=== PATIENT | female | born 1925 | race Caucasian/White ===

== ENCOUNTER 2016-04-20 08:50 | Inpatient (IN) | payer MEDICARE, BC ==
--- NOTE | ~2016-04-20 | HP ---
History And Physical [place] [id number] [facility] [place]. [address] NAME: NAY CONNELL : [birth year] STATUS : ADM IN [facility]#: [id number] AGE: 89 ADM/REG DATE : 04/20/16 MR#: [id number] REPORT SERV DATE: 04/20/16 DICTATED BY: REMEDIOS ALICIA DATE: 04/20/16 REPORT STATUS : Draft TRANSCRIBED BY: BILLY DATE: 04/20/16 DATE OF ADMISSION: 04/20/2016 CHIEF COMPLAINT: Multiple. HISTORY OF PRESENT ILLNESS: The patient is a very pleasant 89-year-old white female. Her niece is at the bedside, who she lives with. The patient has no children of her own. Apparently last week, she had what was described as a gastrointestinal illness. She had nausea and vomiting. This subsequently resolved. Her last episode was on Wednesday. She was doing better, eating and drinking, and then on Wednesday, her niece noticed that she was kind of choking on liquids, not on solids, but on liquid, she had difficulty getting down liquids. She had no fever, no diarrhea, no abdominal pain. She has a slight cough, but it is not really new, and she seemed to be a little bit more confused over the weekend. She did have any difficulty moving any of her extremities, but she was somewhat weak. ALLERGIES: TRAMADOL. PAST MEDICAL HISTORY: 1. Chronic left bundle-branch block. 2. Chronic back pain. 3. Hypertension. 4. Hyperlipidemia. 5. Paroxysmal atrial fibrillation. 6. Dementia. 7. CKD with baseline creatinine around 1.5. 8. Ischemic cardiomyopathy, EF 35. 9. Frequent falls. 10.Hyperlipidemia. SOCIAL HISTORY: She is a nondrinker, nonsmoker. She lives with a niece. FAMILY HISTORY: Negative for any premature coronary artery disease. HOME MEDICATIONS: Reviewed and attached. REVIEW OF SYSTEMS: A full ten-point review of systems obtained. Pertinent positives mentioned in the HPI. PHYSICAL EXAMINATION: VITAL SIGNS: BP 163/66, temperature 97.9, pulse 198-100, respiratory rate 24, sats 100%. Temperature is 97.9. GENERAL: Well-developed elderly white female, pleasant. HEENT: Normocephalic, atraumatic. Throat is clear. NECK: Supple. HEART: Regular rate and rhythm. LUNGS: Grossly clear. History And Physical [place] [id number] [place]. [address] NAME: NAY CONNELL : [birth year] STATUS : ADM IN PAT#: [id number] AGE: 89 ADM/REG DATE : 04/20/16 MR#: [id number] REPORT SERV DATE: 04/20/16 DICTATED BY: REMEDIOS ALICIA DATE: 04/20/16 REPORT STATUS : Draft TRANSCRIBED BY: BILLY DATE: 04/20/16 ABDOMEN: Soft, nondistended, nontender. EXTREMITIES: Warm and dry. Pulses are 2+ at the feet. SKIN: Intact without rash or lesion. NEURO: She is alert. She is oriented to person and place, but not time. Mood and affect appear appropriate. She has symmetrical strength in all four extremities. Cranial nerves 2 through 12 are also intact. She does have a gag reflex. LABORATORY AND X-RAY: H and H are 12 and 38, white count 9.7, and platelets 249. Sodium 145, potassium 4.6, chloride 115. CO2 18. BUN and creatinine 42 and 2.7. Glucose 124. Lipase 168. LFTs are normal. Chest x-ray is stable and unchanged. Flu swab is negative. EKG shows a chronic left bundle. ASSESSMENT/PLAN: 1. Dysphagia to liquids. This is a new symptom, certainly must rule out transient ischemic attack or stroke, especially in the face of some increase in her confusion symptoms. We would recommend doing an MRI of her brain. We will do without contrast given that she has some acute on chronic kidney disease. We will also add a carotid duplex and echo. We will place her on a tele bed, continue aspirin, change her to Lipitor 80 mg a day, follow up her MRI and go from there. We will also have Speech Therapy see her in consultation to further evaluate her swallowing. We will keep her n.p.o. for now, provide IV fluids until we can assess that she can really swallow. 2. Acute kidney injury likely secondary to first and foremost urinary retention. She had about 800 mL of urine in her bladder when a Gu was placed. Also, she has had previous gastrointestinal illness resulting in nausea and vomiting. I suspect she has a component of dehydration and she has also developed some dysphagia and she is unable to take adequate p.o. liquids. I am going to hydrate her overnight and follow her with serial labs and continue her with the Gu catheter in place. Her urinalysis looks good. We will follow up on her urine culture and go from there. We will hold her angiotensin-receptor stella and her Lasix. 3. Dementia, acute on chronic, a bit worse today. We will continue her home medications and follow. She could have had a new stroke. 4. History of hypertension. I wrote for her blood pressure medicines. I do not believe she has had them today, although her niece states she thinks she has. 5. History of paroxysmal atrial fibrillation. She was in atrial fibrillation today. She was in sinus and as she has had a new stroke, we may need to revisit this and consider anticoagulation. 6. History of ischemic cardiopathy. We will be judicious with the use of fluids. 7. Hyperlipidemia, on statin therapy. 8. Deep venous thrombosis prophylaxis with subcutaneous heparin. 9. Disposition, pending above the aforementioned plan and workup. FALGUNI/BILLY History And Physical [address] [address] NAME: NAY CONNELL : [birth year] STATUS : ADM IN [facility]#: [id number] AGE: 89 ADM/REG DATE : 04/20/16 MR#: [id number] REPORT SERV DATE: 04/20/16 DICTATED BY: REMEDIOS ALICIA DATE: 04/20/16 REPORT STATUS : Draft TRANSCRIBED BY: BILLY DATE: 04/20/16 Remedios Alicia M.D. / [id number] CC: Mariel Otto M.D.
--- NOTE | ~2016-04-20 | CN ---
Consultation Report [facility] [address] [place]. [address] NAME: NAY CONNELL : [birth year] STATUS : ADM IN [facility]#: [id number] AGE: 89 ADM/REG DATE : 04/20/16 MR#: [id number] REPORT SERV DATE: 04/21/16 DICTATED BY: SAVANNAH BECK DATE: 04/21/16 REPORT STATUS : Draft TRANSCRIBED BY: MODL DATE: 04/21/16 NEPHROLOGY CONSULTATION DATE OF CONSULTATION: 04/21/2016 REASON FOR CONSULTATION: CKD with FANNY and acidosis. HISTORY OF PRESENT ILLNESS: Ms. Connell is an 89-year-old white female with chronic kidney disease, followed in the office of [facility] by Dr. Ceja. She was last seen there within the past month, but records are not available at the time of this dictation. It appears that she has a baseline creatinine between 1.3 and 1.5 according to old records. On 03/27, her creatinine was 1.5, at which time her calcium was 9.6. She was admitted overnight through the ER with a one-week history of GI illness. Apparently, she has had dysphagia for liquids for the last several days. She was brought in by family, where an MRI has shown atrophy without acute stroke. Carotid ultrasound showed no significant stenosis, and chest x-ray showed no active infiltrates. Her creatinine was 2.7 on presentation, at which time her calcium was 11.2 and bicarb was 18. She was placed on IV fluids and today, creatinine is down to 2.4, calcium 10.7, the bicarb is 15. She was recently placed on a bicarb drip. PAST MEDICAL HISTORY: 1. Chronic kidney disease, baseline creatinine 1.3 to 1.5. 2. Hypertension. 3. Dementia. 4. EF 40% with RVSP 42 mmHg and LVH on echo with normal bubble study this admission. 5. Hyperlipidemia. 6. Left bundle-branch block with paroxysmal atrial fibrillation. 7. Possible renal tubular acidosis per records. 8. Osteoporosis. MEDICATIONS: On admission, aspirin, Coreg, vitamin D 1000 units daily, Cardizem 120 mg daily, Colace, Lasix, hydrocodone, lisinopril 10 mg daily, melatonin, Namenda, multivitamin, Prilosec, MiraLax, potassium, pravastatin, sodium bicarb, and Carafate. FAMILY HISTORY: Noncontributory to present admission. SOCIAL HISTORY: She is a , lives in [place], and is retired. Her niece is her power of estate planning attorney. REVIEW OF SYSTEMS: Unobtainable in the patient's current condition. PHYSICAL EXAMINATION: VITAL SIGNS: Temperature 99.8, pulse 109, respirations 16, blood pressure 177/81, 92% sat Consultation Report [place] [id number] [facility] [place]. [address] NAME: NAY CONNELL : [birth year] STATUS : ADM IN PAT#: [id number] AGE: 89 ADM/REG DATE : 04/20/16 MR#: [id number] REPORT SERV DATE: 04/21/16 DICTATED BY: SAVANNAH BECK DATE: 04/21/16 REPORT STATUS : Draft TRANSCRIBED BY: BILLY DATE: 04/21/16 on room air. Intake and output are incomplete. GENERAL: She is an elderly, confused white female, who is checking on her medications with nausea and vomiting during my exam. HEENT: Sclerae without icterus. Conjunctivae not injected. Oropharynx is clear. Mucous membranes are dry. LUNGS: She has bilateral rhonchi, but no dyspnea or tachypnea on room air. CARDIAC: Heart rate tachycardic. Rhythm regular. 2/6 murmur. No rub. ABDOMEN: Soft, nontender, nondistended. EXTREMITIES: Without edema. SKIN: Without rash. : Deferred. Urine output is noted in the Gu catheter. NEURO: Deferred. MUSCULOSKELETAL: She has bilateral hand chronic osteoarthritis changes without active process. LABORATORY DATA: Sodium 146, potassium 3.5, bicarb 15, anion gap 14, GFR 17 mL/minute, BUN 37, creatinine 2.4, calcium 10.7, albumin 3.5. Liver function tests normal. White count 10,800; hemoglobin 11.1; platelets 201,000. Influenza was negative. Urinalysis showed no blood or protein. Immunofixation electrophoresis was normal in 06/2014. ASSESSMENT AND PLAN: Ms. Connell has chronic kidney disease, baseline creatinine 1.3 to 1.5 and now with acute kidney injury, anion gap metabolic acidosis, hypercalcemia, dementia, and dysphagia. Other history is as listed above. I suspect at this point she may have some intravascular volume depletion with her recent GI symptoms. Her Lasix and ADY inhibitor have appropriately been placed on hold. We will stop her vitamin D. The reason for her worsened hypercalcemia is unclear at this time, but may be related to vitamin D supplement versus dehydration versus immobility? We will check a PTH and continue hydration plus bicarb replacement. Hopefully, renal function will recover to baseline. She is not a chronic dialysis candidate with her multiple comorbid illnesses. Family updated in room and agree with treatment plan. We will follow closely with you and appreciate consult. CONCHA/BILLY Savannah Beck M.D. / [id number] CC: Consultation Report [address] [address] NAME: NAY CONNELL : [birth year] STATUS : ADM IN PAT#: [id number] AGE: 89 ADM/REG DATE : 04/20/16 MR#: [id number] REPORT SERV DATE: 04/21/16 DICTATED BY: SAVANNAH BECK DATE: 04/21/16 REPORT STATUS : Draft TRANSCRIBED BY: BILLY DATE: 04/21/16 Lyn Mckeon M.D. Mariel Otto M.D. Douglas Ceja M.D.
--- NOTE | ~2016-04-20 | CN ---
Consultation Report [facility] [address] [place]. [address] NAME: NAY CONNELL : [birth year] STATUS : ADM IN PAT#: [id number] AGE: 89 ADM/REG DATE : 04/20/16 MR#: [id number] REPORT SERV DATE: 04/23/16 DICTATED BY: MORENO ROWE DATE: 04/23/16 REPORT STATUS : Draft TRANSCRIBED BY: MODL DATE: 04/23/16 GI CONSULTATION DATE OF CONSULTATION: 04/23/2016 REASON FOR CONSULTATION: Evaluation and management of dysphagia. HISTORY OF PRESENT ILLNESS: Ms. Connell is an 89-year-old female patient, who has been seen by Dr. Ray Alston in the past, who presented on 04/20 with multiple list of complaints. It should be noted that the history of present illness has been gathered from the chart as she is unable to supply me with really any adequate history. She apparently lives with her niece, who is not present at this time, but when she came in, she had had what was described as a GI virus with nausea and vomiting that resolved. She has been having issues with choking on liquids. She states that solids get stuck, she has to regurgitate them back up. She has had a cough at home. She has dementia, but per records had been more confused at home and had some difficulty in ambulating with more progressive weakness, thus she was brought in and found to have acute kidney injury secondary to her nausea and vomiting. Her main complaints now are dysphagia and choking on all consistencies. She had a modified barium swallow study as well as a bedside swallow study with only recommendations of aspiration precautions, regular diet, regular meats, thin liquids, no treatment. The patient did have noted dry heaving and gagging three-fourths of the study, no visualized reason for this to happen, thus prompting GI consultation. She has had an upper endoscopy in the past with Dr. Alston, this was done in 12/2013 secondary to dyspepsia, gas, and bloating. Findings on that exam showed a normal duodenum, normal stomach, hiatal hernia, and a tortuous esophagus. I have discussed with the patient we will plan on EGD in the morning. Risks, benefits, alternatives, and complications were detailed for her to include, but not limited to risk of bleeding, perforation, infection, reaction to medications, as well as cardiac pulmonary side effects. PAST MEDICAL HISTORY: Chronic left bundle-branch block, chronic back pain, hypertension, paroxysmal atrial fibrillation, dementia, chronic kidney disease, ischemic cardiomyopathy with last ejection fraction 35%, falls, dementia, hyperlipidemia, gastritis, a tortuous esophagus. SOCIAL HISTORY: No alcohol, tobacco, or illicits. She lives independently with her niece. FAMILY HISTORY: Noncontributory from a GI standpoint. ALLERGIES: TO TRAMADOL. HOME MEDICATIONS: Aspirin, Coreg, vitamin D, Cardizem, Colace, Lasix, Neon, Proventil, melatonin, Namenda, multivitamin, Prilosec, MiraLax, potassium, Pravachol, sodium bicarbonate, Carafate. Consultation Report [address] [place]. [address] NAME: NAY CONNELL : [birth year] STATUS : ADM IN [facility]#: [id number] AGE: 89 ADM/REG DATE : 04/20/16 MR#: [id number] REPORT SERV DATE: 04/23/16 DICTATED BY: MORENO ROWE DATE: 04/23/16 REPORT STATUS : Draft TRANSCRIBED BY: BILLY DATE: 04/23/16 REVIEW OF SYSTEMS: Somewhat limited due to the patient's mental status. PERTINENT LABORATORY DATA: Sodium 141, potassium is 2.9, BUN is 2.7, creatinine 2.18. White count 11.2, hemoglobin is 11.2 with a hematocrit of 34.0, platelet count 203. INR of 1.2. PHYSICAL EXAMINATION: VITAL SIGNS: Temperature 98.0, pulse 80, respirations 18, and blood pressure 143/72. NEURO: Reveals an alert female, resting in bed. She is oriented to self, and she knows she is in the hospital. GENERAL: She is cooperative. She is in no obvious apparent distress. It is hard for her to give me any specifics on why she is in the hospital. HEAD, EARS, EYES, NOSE, AND THROAT: Anicteric. Pupils equal, round, reactive to light and accommodation. Normocephalic and atraumatic. NECK: No JVD. No palpable nodes. Supple. LUNGS: Coarse with normal respiratory effort exhibited. CARDIOVASCULAR SYSTEM: Regular rate and rhythm. ABDOMEN: Soft, nondistended, nontender with active bowel sounds. EXTREMITIES: No edema. Normal distal pulses. SKIN: Warm, dry, and intact. ASSESSMENT: 1. Dysphagia, unclear etiology. 2. Dementia. 3. Acute kidney injury on presentation. 4. Nausea and vomiting, which has resolved. 5. Hypokalemia. PLAN: EGD with dilation in the morning, we will check for Flory esophagitis on the exam. We will hold her aspirin. Other recommendations to follow endoscopy. FREDDY/BILLY Moreno LYNDA Montoya / [id number] CC: Laurita Benson M.D.
--- NOTE | ~2016-04-20 | EGD ---
EGD REPORT [facility] [address] [address] NAME: MAYRA CONNELL : [birth year] STATUS : ADM IN PAT#: [id number] AGE: 89 ADM/REG DATE : 04/20/16 MR#: [id number] REPORT SERV DATE: 04/24/16 DICTATED BY: TIMOTHY LANIER DATE: 04/24/16 REPORT STATUS : Draft TRANSCRIBED [facility]: [facility] DATE: 04/24/16 Endoscopy Center Patient Name: Mayra Connell Date of : 1925 Attending MD: TIMOTHY LANIER MD Procedure Date No Time: 04/24/2016 Procedure: Upper GI endoscopy Indications: Dysphagia Referring MD: CHANTELLE MAHONEY MD Medicines: Monitored Anesthesia Care Complications: No immediate complications. Estimated blood loss: Minimal. Procedure: Pre-Anesthesia Assessment: - ASA Grade Assessment: III - A patient with severe systemic disease. After obtaining informed consent, the endoscope was passed under direct vision. Throughout the procedure, the patient's blood pressure, pulse, and oxygen saturations were monitored continuously. The GIF [id number] was introduced through the mouth, and advanced to the second part of duodenum. The upper GI endoscopy was accomplished without difficulty. The patient tolerated the procedure well. Findings: No endoscopic abnormality was evident in the esophagus to explain the patient's complaint of dysphagia. Biopsies were taken with a cold forceps for histology. Estimated blood loss was minimal. A medium-sized hiatus hernia was present. The examined duodenum was normal. The exam was otherwise without abnormality. Impression: - No endoscopic esophageal abnormality to explain patient's dysphagia. Biopsied. - Hiatus hernia. - The examination was otherwise normal. Recommendation: - Return patient to hospital [facility] for ongoing care. - Use Protonix (pantoprazole) 40 mg PO BID for 6 weeks. - Await pathology results. - Mechanical soft diet. - Return to GI clinic in 4 weeks. Procedure Code(s): --- Professional --- 81711, Esophagogastroduodenoscopy, flexible, transoral; EGD REPORT [facility] [address] [place] [address]. [address] NAME: MAYRA CONNELL : [birth year] STATUS : ADM IN [facility]#: [id number] AGE: 89 ADM/REG DATE : 04/20/16 MR#: [id number] REPORT SERV DATE: 04/24/16 DICTATED BY: TIMOTHY LANIER DATE: 04/24/16 REPORT STATUS : Draft TRANSCRIBED BY: [facility] DATE: 04/24/16 with biopsy, single or multiple Diagnosis Code(s): --- Professional --- R13.10, Dysphagia, unspecified K44.9, Diaphragmatic hernia without obstruction or gangrene CPT copyright 2013 [employer]. All rights reserved. The codes documented in this report are preliminary and upon neuroscience director na review may be revised to meet current compliance requirements. Timothy Lanier MD TIMOTHY LANIER MD 04/24/2016 10:08 AM This report has been signed electronically. Number of Addenda: 0 Note Initiated On: 04/24/2016 9:27 AM Scope Withdrawal Time 0 hours 0 minutes 0 seconds [address] [place], [place] [address]X
--- NOTE | ~2016-04-20 | DS ---
Discharge Summary [facility] [address] [place]. [address] NAME: MAYRA CONNELL : [birth year] STATUS : DIS IN PAT#: [id number] AGE: 89 ADM/REG DATE : 04/20/16 MR#: [id number] REPORT SERV DATE: 04/24/16 DICTATED BY: OTILIA GARVIN DATE: 04/24/16 REPORT STATUS : Draft TRANSCRIBED BY: MODL DATE: 04/24/16 ADMISSION DATE: 04/20/2016 DISCHARGE DATE: 04/24/2016 CONDITION ON DISCHARGE: Stable. DISPOSITION: Discharged to home with home health nurse under the care of her niece. DIAGNOSES ON DISCHARGE: 1. Acute kidney injury on chronic kidney disease - resolving. 2. Dysphagia of unclear origin right now. The patient has had EGD that is showing almost normal esophagus and stomach except for mild esophagitis for which the patient is being placed on a proton pump inhibitor. 3. Stroke has been ruled out for the dysphagia. Other conditions that are chronic and remain stable include: 1. Chronic kidney disease, stage IV which is stable and the patient is being followed by Dr. Ceja as outpatient. 2. Moderate dementia, which is chronic and for which the patient is on medications at this time. 3. Hypertension, which is stable. 4. Paroxysmal atrial fibrillation - the patient is in sinus rhythm as of now, but again, anticoagulation is not an option in this patient given the history of other comorbidities and also given the history of risk for fall. 5. History of ischemic cardiomyopathy, which is stable. 6. Hyperlipidemia - the patient is already on statin therapy. BRIEF HOSPITAL COURSE: Ms Mayra Connell is an 89-year-old white female patient who lives at home and is being cared for by her niece who was brought in because of dysphagia. The patient was admitted with rule out stroke and workup per stroke protocol was initiated. The patient had a CT scan of the brain and an MRI that did not show any evidence of any acute stroke at this time. As the patient did complain of ongoing dysphagia, the patient had to undergo an EGD. Consults obtained during this hospitalization include a GI consult for the dysphagia and upper endoscopy and also Nephrology consult for acute kidney injury. The patient was also started on fluids and her FANNY has been resolving, and her creatinine is almost back to baseline. Her baseline creatinine is around 1.5 to 1.6, followed by Dr. Ceja, and on the day of discharge, her creatinine is 2.0. This is not at baseline yet, but has shown significant improvement and has decreased from almost 2.7 to 2.0 today. The patient underwent an EGD on 04/24/2016 that showed normal esophagus except for mild esophagitis, normal stomach and duodenum. Hence, the reason for the dysphagia itself is unclear right now other than could be psychogenic/related to her dementia itself. However, the niece has been updated with all the above tests results and the patient is being sent home with home health nurse, and also the niece has been advised to give the patient soft Discharge Summary [address] [place] [facility] [place] [address] NAME: MAYRA CONNELL : [birth year] STATUS : DIS IN PAT#: [id number] AGE: 89 ADM/REG DATE : 04/20/16 MR#: [id number] REPORT SERV DATE: 04/24/16 DICTATED BY: OTILIA GARVIN DATE: 04/24/16 REPORT STATUS : Draft TRANSCRIBED BY: BILLY DATE: 04/24/16 mechanical diet and take aspiration precautions. The patient is being sent home with only one medication that is new, omeprazole 40 mg p.o. b.i.d., given 30 minutes before food, I have given a prescription for #60. All other medications will remain the same and these include pravastatin 40 mg once a day, carvedilol 25 mg p.o. b.i.d., Cardizem CD 120 mg once a day, Colace, melatonin, Namenda 5 mg once a day, multivitamins, sodium bicarbonate 650 mg p.o. q.h.s., sucralfate 1 g p.o. b.i.d., aspirin 81 mg once a day, Lasix 20 mg once a day, [place] 5/325 one p.o. b.i.d. p.r.n., polyethylene glycol kit p.r.n., potassium chloride 10 mEq p.o. daily, and vitamin D 1000 units once day. At this time, we will hold lisinopril 10 mg that she takes given the history of acute kidney injury that the patient had during this admission. However, when the patient sees Dr. Ceja back in the next four to five weeks, lisinopril could be restarted upon the chain link fence installer's discretion. At this time, I have the following labs on the patient. Most recent labs on Mayra Connell include the following: Her CBC on 04/24/2016 shows WBC count of 12.1, hemoglobin 11.9, hematocrit of 35.9, and platelet count of 192. INR is 1.2. Renal function profile shows sodium 141, potassium 3.1 which is being corrected, BUN is 23, and creatinine is 2.06. Her troponin I was slightly elevated at 0.09, but the patient is asymptomatic at this time and does not have any chest pain per se. The patient had a swallowing study too that shows that she does have vallecular pooling prior to swallow, but no evidence of aspiration or penetration during the exam. The patient also had a PTH that came back normal. The patient also had a hemoglobin A1c that came back normal at 5.0. Urinalysis that came back completely normal. The patient also had a bilateral carotid ultrasound that showed atherosclerotic disease, but no evidence of significant luminal stenosis. There is less than 50% luminal stenosis in the right proximal ICA. Also as mentioned above, the patient had an MRI of the brain and that showed no evidence of any acute infarction, but did show generalized atrophy and microangiopathic leukoencephalopathy. Hence, the patient is being sent home in stable condition with home health nurse and with medications as mentioned above. I have spent about 40 minutes in coordinating discharge care of this patient including face- to-face encounter and summarizing this discharge. RRA/MODL Otilia Garvin M.D. Discharge Summary [address] [address] NAME: MAYRA CONNELL : [birth year] STATUS : DIS IN PAT#: [id number] AGE: 89 ADM/REG DATE : 04/20/16 MR#: [id number] REPORT SERV DATE: 04/24/16 DICTATED BY: OTILIA GARVIN DATE: 04/24/16 REPORT STATUS : Draft TRANSCRIBED BY: BILLY DATE: 04/24/16 / [id number] CC: Laurita Benson M.D.
--- NOTE | ~2016-04-20 | EGD ---
EGD REPORT [facility] [address] [place] [address] NAME: MAYRA CONNELL : [birth year] STATUS : ADM IN PAT#: [id number] AGE: 89 ADM/REG DATE : 04/20/16 MR#: [id number] REPORT SERV DATE: 04/24/16 DICTATED BY: TIMOTHY LANIER DATE: 04/24/16 REPORT STATUS : Draft TRANSCRIBED BY: [facility] DATE: 04/24/16 Endoscopy Center Patient Name: Mayra Connell Date of : 1925 Attending MD: TIMOTHY LANIER MD Procedure Date No Time: 04/24/2016 Procedure: Upper GI endoscopy Indications: Dysphagia Referring MD: CHANTELLE MAHONEY MD Medicines: Monitored Anesthesia Care Complications: No immediate complications. Estimated blood loss: Minimal. Procedure: Pre-Anesthesia Assessment: - ASA Grade Assessment: III - A patient with severe systemic disease. After obtaining informed consent, the endoscope was passed under direct vision. Throughout the procedure, the patient's blood pressure, pulse, and oxygen saturations were monitored continuously. The GIF [id number] was introduced through the mouth, and advanced to the second part of duodenum. The upper GI endoscopy was accomplished without difficulty. The patient tolerated the procedure well. Findings: No endoscopic abnormality was evident in the esophagus to explain the patient's complaint of dysphagia. Biopsies were taken with a cold forceps for histology. Estimated blood loss was minimal. A medium-sized hiatus hernia was present. The examined duodenum was normal. The exam was otherwise without abnormality. Impression: - No endoscopic esophageal abnormality to explain patient's dysphagia. Biopsied. - Hiatus hernia. - The examination was otherwise normal. Recommendation: - Return patient to hospital [facility] for ongoing care. - Use Protonix (pantoprazole) 40 mg PO BID for 6 weeks. - Await pathology results. - Mechanical soft diet. - Return to GI clinic in 4 weeks. Procedure Code(s): --- Professional --- 63727, Esophagogastroduodenoscopy, flexible, transoral; EGD REPORT [facility] [address] [place] [address]. [address] NAME: MAYRA CONNELL : [birth year] STATUS : ADM IN [facility]#: [id number] AGE: 89 ADM/REG DATE : 04/20/16 MR#: [id number] REPORT SERV DATE: 04/24/16 DICTATED BY: TIMOTHY LANIER DATE: 04/24/16 REPORT STATUS : Draft TRANSCRIBED BY: [facility] DATE: 04/24/16 with biopsy, single or multiple Diagnosis Code(s): --- Professional --- R13.10, Dysphagia, unspecified K44.9, Diaphragmatic hernia without obstruction or gangrene CPT copyright 2013 [employer]. All rights reserved. The codes documented in this report are preliminary and upon hyperion developer review may be revised to meet current compliance requirements. Timothy Lanier MD TIMOTHY LANIER MD 04/24/2016 10:08 AM This report has been signed electronically. Number of Addenda: 0 Note Initiated On: 04/24/2016 9:27 AM Scope Withdrawal Time 0 hours 0 minutes 0 seconds [address] [place], [place] [address]J
[~2016-04-20 08:50] MED LIST: ACET500CAP PO; ALTA2.5 PO; ALTA5 PO; ASAB PO; CALCIUM,MAG,ZINC PO; CARDCD120 PO; CEFT2 PO; CLARIT10 PO; COREG12 PO; COREG25 PO; COREG3 PO; COREG6 PO; D 5000 PO; DIGITEK0.125 MG PO; DSS PO; EYE CAPS PO; FISH OIL300 MG PO; FISH-EPA1000 MG PO; FORTICAL200 MG/ACT NAS; FOSAMAX + D1 TAB PO; FOSAMAX70 MG PO; GAS-X80 MG PO; GLUCCHONDR PO; HAL PO; HALF81 PO; IRCON66 MG PO; KDUR20 PO; KLOR-CON 1010 MEQ PO; KLOR-CON M2020 MEQ PO; L20 PO; LAN125 PO; LEVAQUIN750 MG PO; LORTAB 5 PO; MELA3 PO; MIACALCIN NAS; MIRALAX POWDER1 PKT PO; MIRALAXPKT PO; MSM500 MG OR; MULTIPLE VIT PO; MULTIVIT/MIN PO; NAMENDA5 PO; NORCO1 TA1 PO; OCEAN NAS; PRAV10 PO; PRAVACHOL40 MG PO; PRILOSEC40 MG PO; PRIN10 PO; PROVASMIN OR; SODBICAR10 PO; STOOL SOFTEN100 MG PO; STOOL SOFTENER PO; SUCR PO; T PO; ULTRAM50 PO; V5 PO; VALIUM10 MG PO; VISINE0.05 % OP; VITA10 PO; VITAMIN B COMPLEX PO; VITAMIN D1000 UNI1 PO; VITAMIN D400 UNI1 PO; VITC500 PO; ZITHROMAX500 MG PO; ZOFRAN4 PO; [UNRECOGNIZED DRUG - OTHER] PO; [UNRECOGNIZED DRUG - OTHER] PO
[2016-04-20 10:17] LABS: BASOPHILS 0.1 %; BASOPHILS ABSOLUTE 0.01 10/3/uL (0.0-0.16); EOSINOPHILS 0.4 %; EOSINOPHILS ABSOLUTE 0.04 10/3/uL (0.0-0.53); ER CBC TAT 0 Hrs 10 Mins; HEMATOCRIT 38.2 % (36.0-48.0); HEMOGLOBIN 12.9 g/dL (12.0-16.0); IMMATURE GRANULOCYTES 0.4 %; IMMATURE GRANULOCYTES ABSOLUTE 0.04 10/3/uL (0.0-0.11); LYMPHOCYTES 8.4 %; LYMPHOCYTES ABSOLUTE 0.81 10/3/uL (0.67-4.30); MEAN CORPUS HGB CONC 33.8 g/dL (32.0-36.0); MEAN CORPUSCULAR HEMOGLOB 29.1 pg (26.0-34.0); MEAN PLATELET VOLUME 10.1 fL (9.2-13.0); MONOCYTES 6.6 %; MONOCYTES ABSOLUTE 0.64 10/3/uL (0.21-1.20); NEUTROPHILS 84.1 %; NEUTROPHILS ABSOLUTE 8.12 10/3/uL (2.02-8.40); PLATELET COUNT 249 10/3/uL (150-400); RBC DISTRIBUTION WIDTH 13.2 % (12.0-16.0); RED CELL COUNT 4.44 10/6/uL (4.0-5.6); WHITE BLOOD CELLS 9.7 10/3/uL (4.5-10.5)
[2016-04-20 10:24] LABS: MANUAL DIFF NO %
[2016-04-20 10:31] LABS: INFLUENZA A SCREEN NEGATIVE (NEGATIVE); INFLUENZA B SCREEN NEGATIVE (NEGATIVE)
[2016-04-20 10:31] LABS: A/G RATIO 1.1 (0.7-1.9); ALBUMIN 3.9 G/DL (3.5-5.0); ALKALINE PHOSPHATASE 94 U/L (45-117); BUN (BLOOD UREA NITROGEN) 42 MG/DL (6-23); CALCIUM, SERUM 11.2 MG/DL (8.5-10.4); CHLORIDE, SERUM 115 MMOL/L (96-112); CO2 (CARBON DIOXIDE) 18 MMOL/L (24-34); GFR AFRICAN AMERICAN 17 ML/MIN (>=60); GFR NON AFRICAN AMERICAN 15 ML/MIN (>=60); GLOBULIN 3.5 G/DL (2.5-4.1); GLUCOSE, SERUM 124 MG/DL (60-99); POTASSIUM, SERUM 4.6 MMOL/L (3.5-5.3); SGOT(AST) 6 U/L (5-40); SGPT(ALT) 14 U/L (5-65); SODIUM, SERUM 145 MMOL/L (135-148); TOTAL BILIRUBIN 0.4 MG/DL (0-1.2); TOTAL PROTEIN 7.4 G/DL (6.0-8.5)
[2016-04-20 12:21] LABS: ASCORBIC ACID (UR NOT ORDER) NEG (NEG); BILIRUBIN, URINE NEGATIVE (NEG); ER URINALYSIS TAT 0 Hrs 36 Mins; KETONE, URINE NEGATIVE (NEG); LEUKOCYTE ESTERASE(NOT OR NEG (NEG); NITRITE (URINE) NEG (NEG); WBC (NOT ORDERED) (RFLEX) < 1 (0-5)
[2016-04-20] MEDS ORDERED: VITAMIN D1000 UNI1 PO (12:47)
[2016-04-20 18:13] LABS: INTERNATIONAL NORMAL RATI 1.2 UNITS (-); PARTIAL THROMBO TIME 26.9 SEC (22.5-37.2); PROTIME (NOT ORD) 15.2 SEC (12.0-14.5)
[2016-04-20 18:14] LABS: CHOL/HDL RATIO(NOT ORDER) 2.9 (0-5); CHOLESTEROL 146 MG/DL (< 200); HDL CHOLESTEROL 51 MG/DL (> 49); LDL CHOLESTEROL 71 MG/DL (< 130); NON-HDL CHOLESTEROL 95 MG/DL (< 160); TRIGLYCERIDE 123 MG/DL (< 150)
[2016-04-21 02:07] LABS: BASOPHILS 0 %; EOSINOPHILS 0.1 %; EOSINOPHILS ABSOLUTE 0.01 10/3/uL (0.0-0.53); HEMOGLOBIN 11.1 g/dL (12.0-16.0); IMMATURE GRANULOCYTES 0.4 %; IMMATURE GRANULOCYTES ABSOLUTE 0.04 10/3/uL (0.0-0.11); LYMPHOCYTES 8.7 %; LYMPHOCYTES ABSOLUTE 0.94 10/3/uL (0.67-4.30); MEAN CORPUSCULAR HEMOGLOB 28.9 pg (26.0-34.0); MEAN CORPUSCULAR VOLUME 84.9 fL (80-100); MEAN PLATELET VOLUME 10.3 fL (9.2-13.0); MONOCYTES ABSOLUTE 0.75 10/3/uL (0.21-1.20); NEUTROPHILS 83.8 %; NEUTROPHILS ABSOLUTE 9.05 10/3/uL (2.02-8.40); PLATELET COUNT 201 10/3/uL (150-400); RED CELL COUNT 3.84 10/6/uL (4.0-5.6); WHITE BLOOD CELLS 10.8 10/3/uL (4.5-10.5)
[2016-04-21 02:12] LABS: HEMATOCRIT 32.6 % (36.0-48.0); MANUAL DIFF NO %
[2016-04-21 02:27] LABS: BUN (BLOOD UREA NITROGEN) 40 MG/DL (6-23); CALCIUM, SERUM 10.5 MG/DL (8.5-10.4); CHLORIDE, SERUM 117 MMOL/L (96-112); CREATININE 2.55 MG/DL (0.55-1.02); GFR AFRICAN AMERICAN 19 ML/MIN (>=60); GFR NON AFRICAN AMERICAN 16 ML/MIN (>=60); GLUCOSE, SERUM 117 MG/DL (60-99); POTASSIUM, SERUM 3.9 MMOL/L (3.5-5.3); SODIUM, SERUM 148 MMOL/L (135-148)
[2016-04-21 02:30] LABS: CO2 (CARBON DIOXIDE) 15 MMOL/L (24-34); TROPONIN I 0.13 NG/ML (<0.05)
[2016-04-21 10:57] LABS: BUN (BLOOD UREA NITROGEN) 37 MG/DL (6-23); CALCIUM, SERUM 10.7 MG/DL (8.5-10.4); CHLORIDE, SERUM 117 MMOL/L (96-112); CREATININE 2.41 MG/DL (0.55-1.02); GFR AFRICAN AMERICAN 20 ML/MIN (>=60); GFR NON AFRICAN AMERICAN 17 ML/MIN (>=60); GLUCOSE, SERUM 115 MG/DL (60-99); POTASSIUM, SERUM 3.5 MMOL/L (3.5-5.3); SODIUM, SERUM 146 MMOL/L (135-148)
[2016-04-21 10:58] LABS: CO2 (CARBON DIOXIDE) 15 MMOL/L (24-34)
[2016-04-21 13:34] LABS: INTACT PTH (ICMA) 16.6 PG/ML (10.0-65.0)
[2016-04-22 01:58] LABS: BASOPHILS 0 %; EOSINOPHILS 0.2 %; EOSINOPHILS ABSOLUTE 0.02 10/3/uL (0.0-0.53); HEMATOCRIT 32.9 % (36.0-48.0); HEMOGLOBIN 11.5 g/dL (12.0-16.0); IMMATURE GRANULOCYTES 0.3 %; IMMATURE GRANULOCYTES ABSOLUTE 0.03 10/3/uL (0.0-0.11); LYMPHOCYTES 10.9 %; LYMPHOCYTES ABSOLUTE 1.27 10/3/uL (0.67-4.30); MEAN CORPUSCULAR HEMOGLOB 29.4 pg (26.0-34.0); MEAN CORPUSCULAR VOLUME 84.1 fL (80-100); MONOCYTES 9.1 %; MONOCYTES ABSOLUTE 1.06 10/3/uL (0.21-1.20); NEUTROPHILS 79.5 %; NEUTROPHILS ABSOLUTE 9.25 10/3/uL (2.02-8.40); PLATELET COUNT 211 10/3/uL (150-400); RBC DISTRIBUTION WIDTH 12.8 % (12.0-16.0); RED CELL COUNT 3.91 10/6/uL (4.0-5.6); WHITE BLOOD CELLS 11.6 10/3/uL (4.5-10.5)
[2016-04-22 02:05] LABS: MANUAL DIFF NO %
[2016-04-22 02:20] LABS: BUN (BLOOD UREA NITROGEN) 36 MG/DL (6-23); CALCIUM, SERUM 10.1 MG/DL (8.5-10.4); CHLORIDE, SERUM 110 MMOL/L (96-112); CREATININE 2.46 MG/DL (0.55-1.02); GFR AFRICAN AMERICAN 19 ML/MIN (>=60); GFR NON AFRICAN AMERICAN 17 ML/MIN (>=60); GLUCOSE, SERUM 117 MG/DL (60-99); SODIUM, SERUM 149 MMOL/L (135-148)
[2016-04-22 02:21] LABS: CO2 (CARBON DIOXIDE) 28 MMOL/L (24-34); POTASSIUM, SERUM 2.8 MMOL/L (3.5-5.3); TROPONIN I 0.13 NG/ML (<0.05)
[2016-04-23 05:56] LABS: BASOPHILS 0.1 %; BASOPHILS ABSOLUTE 0.01 10/3/uL (0.0-0.16); EOSINOPHILS 0.9 %; HEMOGLOBIN 11.2 g/dL (12.0-16.0); IMMATURE GRANULOCYTES 0.2 %; IMMATURE GRANULOCYTES ABSOLUTE 0.02 10/3/uL (0.0-0.11); MEAN CORPUSCULAR HEMOGLOB 28.1 pg (26.0-34.0); MEAN CORPUSCULAR VOLUME 85.2 fL (80-100); MEAN PLATELET VOLUME 10.2 fL (9.2-13.0); MONOCYTES 10.7 %; NEUTROPHILS 79.1 %; NEUTROPHILS ABSOLUTE 8.84 10/3/uL (2.02-8.40); PLATELET COUNT 203 10/3/uL (150-400); RBC DISTRIBUTION WIDTH 12.8 % (12.0-16.0); RED CELL COUNT 3.99 10/6/uL (4.0-5.6); WHITE BLOOD CELLS 11.2 10/3/uL (4.5-10.5)
[2016-04-23 06:04] LABS: MANUAL DIFF NO %; MEAN CORPUS HGB CONC 32.9 g/dL (32.0-36.0)
[2016-04-23 06:10] LABS: CALCIUM, SERUM 9.3 MG/DL (8.5-10.4); CHLORIDE, SERUM 106 MMOL/L (96-112); CO2 (CARBON DIOXIDE) 24 MMOL/L (24-34); CREATININE 2.18 MG/DL (0.55-1.02); GFR AFRICAN AMERICAN 23 ML/MIN (>=60); GFR NON AFRICAN AMERICAN 19 ML/MIN (>=60); GLUCOSE, SERUM 130 MG/DL (60-99)
[2016-04-23 06:14] LABS: BUN (BLOOD UREA NITROGEN) 27 MG/DL (6-23); POTASSIUM, SERUM 2.9 MMOL/L (3.5-5.3); SODIUM, SERUM 141 MMOL/L (135-148)
[2016-04-24 06:06] LABS: INTERNATIONAL NORMAL RATI 1.2 UNITS (-); PROTIME (NOT ORD) 14.9 SEC (12.0-14.5)
[2016-04-24 06:11] LABS: BASOPHILS 0 %; EOSINOPHILS 0.6 %; EOSINOPHILS ABSOLUTE 0.07 10/3/uL (0.0-0.53); HEMATOCRIT 35.9 % (36.0-48.0); HEMOGLOBIN 11.9 g/dL (12.0-16.0); IMMATURE GRANULOCYTES 0.2 %; IMMATURE GRANULOCYTES ABSOLUTE 0.02 10/3/uL (0.0-0.11); LYMPHOCYTES 5.6 %; LYMPHOCYTES ABSOLUTE 0.68 10/3/uL (0.67-4.30); MEAN CORPUS HGB CONC 33.1 g/dL (32.0-36.0); MEAN CORPUSCULAR HEMOGLOB 28.2 pg (26.0-34.0); MEAN CORPUSCULAR VOLUME 85.1 fL (80-100); MEAN PLATELET VOLUME 10.5 fL (9.2-13.0); MONOCYTES 8.2 %; MONOCYTES ABSOLUTE 0.99 10/3/uL (0.21-1.20); NEUTROPHILS 85.4 %; NEUTROPHILS ABSOLUTE 10.35 10/3/uL (2.02-8.40); PLATELET COUNT 192 10/3/uL (150-400); RBC DISTRIBUTION WIDTH 12.7 % (12.0-16.0); RED CELL COUNT 4.22 10/6/uL (4.0-5.6); WHITE BLOOD CELLS 12.1 10/3/uL (4.5-10.5)
[2016-04-24 06:19] LABS: MANUAL DIFF NO %
[2016-04-24 06:20] LABS: ALBUMIN 3.2 G/DL (3.5-5.0); CALCIUM, SERUM 9.2 MG/DL (8.5-10.4); CHLORIDE, SERUM 106 MMOL/L (96-112); CO2 (CARBON DIOXIDE) 21 MMOL/L (24-34); CREATININE 2.06 MG/DL (0.55-1.02); GFR AFRICAN AMERICAN 24 ML/MIN (>=60); GFR NON AFRICAN AMERICAN 21 ML/MIN (>=60); POTASSIUM, SERUM 3.1 MMOL/L (3.5-5.3); SODIUM, SERUM 141 MMOL/L (135-148)
[2016-04-24 06:21] LABS: BUN (BLOOD UREA NITROGEN) 23 MG/DL (6-23); GLUCOSE, SERUM 92 MG/DL (60-99); PHOSPHORUS, SERUM 4.1 MG/DL (2.5-4.5)
== END 2016-04-24 18:56 | disposition home health service (06) | DRG 683 ==
LOC: ER 08:50 → 4SO 14:27 → ER/OF 15:22 → 1SO 15:37
PROVIDERS: Emergency Medicine; Internal Medicine; Internal Medicine Gastroenterology; Nurse Practitioner Family; Registered Nurse
PROC: 0DB58ZX Excision of Esophagus, Via Natural or Artificial Opening Endoscopic, Diagnostic (ICD-10-PCS; principal; 2016-04-24 08:30)
DX: N17.9 Acute kidney failure, unspecified (principal); E87.2 Acidosis; E87.0 Hyperosmolality and hypernatremia; I13.0 Hypertensive heart and chronic kidney disease with heart failure and stage 1 through stage 4 chronic kidney disease, or unspecified chronic kidney disease; R13.10 Dysphagia, unspecified; I50.9 Heart failure, unspecified; E83.52 Hypercalcemia; E87.6 Hypokalemia; I48.0 Paroxysmal atrial fibrillation; F03.90 Unspecified dementia, unspecified severity, without behavioral disturbance, psychotic disturbance, mood disturbance, and anxiety; K20.9 Esophagitis, unspecified; E78.5 Hyperlipidemia, unspecified; N18.4 Chronic kidney disease, stage 4 (severe); K44.9 Diaphragmatic hernia without obstruction or gangrene; I44.7 Left bundle-branch block, unspecified; I25.5 Ischemic cardiomyopathy; G89.29 Other chronic pain; M54.9 Dorsalgia, unspecified; Z79.82 Long term (current) use of aspirin; Z79.891 Long term (current) use of opiate analgesic; Z79.899 Other long term (current) drug therapy; Z91.81 History of falling; Z88.5 Allergy status to narcotic agent
CPT/HCPCS: 70551-52; 71010; 74230; 80048; 80053; 80061; 80069; 81001; 82306; 83036; 83690; 83735; 83970; 84132; 84484; 85025; 85610; 85730; 87804; 88305; 92611-GN; 93005; 93306; 93880; 99291; A9270-GY; G8996-CJ-GN; G8997-CJ-GN; G8998-CJ-GN; J3010; J3411

== ENCOUNTER 2016-04-29 18:22 | Inpatient (IN) | payer MEDICARE, BC ==
--- NOTE | ~2016-04-29 | CN ---
Consultation Report [facility] [address] [place]. [address] NAME: NAY CONNELL : [birth year] STATUS : ADM IN PAT#: [id number] AGE: 89 ADM/REG DATE : 04/30/16 MR#: [id number] REPORT SERV DATE: 04/30/16 DICTATED BY: NOELLE PEPE DATE: 04/30/16 REPORT STATUS : Draft TRANSCRIBED BY: BILLY DATE: 04/30/16 CARDIOLOGY CONSULT DATE OF CONSULTATION: REFERRING PHYSICIAN: Uziel Parikh M.D. REFERRING REASON: Hypotension and bradycardia in the setting of dehydration and GI issues. HISTORY OF PRESENT ILLNESS: This is a pleasant 89-year-old, white female, well known to me from [facility], who has nonischemic cardiomyopathy and paroxysmal atrial fibrillation, but mostly normal sinus rhythm with a chronic left bundle-branch block. She was not a candidate for anticoagulation due to frequent falls including orbital fracture, which she obtained during the recent fall in 2016. She also has a history of hypoglycemia in the past. She has some progressive memory decline, but is still able to ambulate with cane or with a walker. Her caregiver is a niece, who actually works at [employer]. The patient has a problem with chronic kidney disease and she has been recently on hospitalist service until April 24 with dysphagia and acute on chronic renal failure. The lisinopril has been discontinued. She was put on Carafate and omeprazole after she underwent EGD, which revealed a hiatal hernia, but no other obvious abnormalities. She reported a rule out for stroke. This is per her niece. The patient went home where she has been on it for a few days. She was unable to eat and became dehydrated. She is also feeling that the food is stuck in her throat every time when she has minimal amount of foods. She started vomiting yesterday and was brought to the emergency room. She was found to be hypotensive with blood pressure 83/46 and the heart rate in the 40s. She required 0.5 mg of atropine and rehydration. With this measure, her heart rate and blood pressure recovered. She remained in normal sinus rhythm overnight. She has a chronic right bundle-branch block. She is currently oriented x3. I had the opportunity to interview also her niece. Her Cardizem has been on hold and she has not received a dose of carvedilol neither. Of note, she has a nonischemic cardiomyopathy with improvements of ejection fraction from 35% in the fall of 2015 to 40% on April 21, 2016. The patient denied any syncope. The rest of the review of systems is negative. PAST MEDICAL HISTORY: 1. Paroxysmal atrial fibrillation, currently in normal sinus rhythm. 2. Chronic right bundle-branch block on electrocardiogram. She has frequent falls with history of orbital fracture in December 2015. 3. No good candidate for anticoagulation due to the frequent falls including trauma. 4. History of hypoglycemia in the past. 5. Nonischemic cardiomyopathy with EF 35% in the fall of 2015, improvement to 40% currently. 6. 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 7. History of nonobstructive CAD by arteriogram performed by Dr. Cole in 2009. 8. Progressive memory loss with early dementia. Consultation Report [place] [id number] [facility] [place]. [address] NAME: NAY CONNELL : [birth year] STATUS : ADM IN [facility]#: [id number] AGE: 89 ADM/REG DATE : 04/30/16 MR#: [id number] REPORT SERV DATE: 04/30/16 DICTATED BY: NOELLE PEPE DATE: 04/30/16 REPORT STATUS : Draft TRANSCRIBED BY: BILLY DATE: 04/30/16 9. Chronic kidney disease followed by Dr. Ceja with a recent acute kidney injury. 10.Hyperlipidemia. ALLERGIES: TRAMADOL. HOME MEDICATIONS: Tylenol, aspirin 81 mg once a day, Coreg 25 mg twice a day, vitamin D, Cardizem CD 120 mg once a day, hydrocodone p.r.n., melatonin 3 mg p.r.n., Namenda 5 mg once a day, Prilosec 40 mg once a day, potassium supplement, Pravachol 40 mg once a day, and Carafate. PHYSICAL EXAMINATION: GENERAL: No acute distress. VITAL SIGNS: Blood pressure 112/53, heart rate 63 and regular. The patient remained in normal sinus rhythm. Oriented x3. HEENT: Pupils reactive to light and accommodation. Moist mucosa membrane. NECK: No JVD. Normal carotid upstroke. No carotid bruits. LUNGS: Decreased breath sounds, but no crackles. COR: Normal S1, S2. No S3 or S4. No significant rub or murmurs. ABDOMEN: Obese, distended, nontender. EXTREMITIES: No edema. Pedal pulses strong and equal bilaterally. SKIN: Warm with normal turgor. MUSCULOSKELETAL: No kyphosis. NEURO/PSYCH: Alert and oriented. Nonfocal. DATA: CBC remarkable for hemoglobin of 10.4, leukocytosis 17,000 with a left shift. Electrolytes were not performed during the recent hospitalization at Hospital. Creatinine was 2.0 and BUN was 28. Potassium was 3.1. The electrocardiogram on admission shows some junctional bradycardia in the 40s with chronic right bundle-branch block. Currently, she is in normal sinus rhythm with chronic right bundle-branch block. No evidence of atrial fibrillation overnight. The chest x-ray is pending. ASSESSMENT AND PLAN: 1. Dehydration with transient hypotension, currently normotensive. 2. Dysphagia with recent hospitalization and the recent nausea and vomiting. 3. Transient bradycardia in the setting of gastrointestinal issues and hypotension, currently in normal sinus rhythm. 4. Chronic right bundle-branch block. 5. Nonischemic dilated cardiomyopathy. 6. Chronic kidney disease. I agree on discontinuation of the Cardizem. We will try to resume low dose of carvedilol 3.125 mg twice a day for her cardiomyopathy. We will closely monitor her electrocardiogram. Her ejection fraction actually improved during the recent hospitalization to 40%. She denied any palpitation or syncope. At the present time, there is no clear indication for pacemaker. However, it is likely that Consultation Report [address] [place]. [address] NAME: NAY CONNELL : [birth year] STATUS : ADM IN [facility]#: [id number] AGE: 89 ADM/REG DATE : 04/30/16 MR#: [id number] REPORT SERV DATE: 04/30/16 DICTATED BY: NOELLE PEPE DATE: 04/30/16 REPORT STATUS : Draft TRANSCRIBED BY: MODL DATE: 04/30/16 she may require it in the future. Her hypotension was likely in the setting of dehydration. She was rehydrated well overnight. OJL/MODL Noelle Pepe M.D. / [id number] CC: Laurita Hurst M.D.
--- NOTE | ~2016-04-29 | HP ---
History And Physical [place] [id number] [facility] [place]. [address] NAME: NAY CONNELL : [birth year] STATUS : REG ER PAT#: [id number] AGE: 89 ADM/REG DATE : 04/29/16 MR#: [id number] REPORT SERV DATE: 04/30/16 DICTATED BY: SHUN GOMEZ DATE: 04/29/16 REPORT STATUS : Draft TRANSCRIBED BY: MODL DATE: 04/29/16 DATE OF ADMISSION: 04/29/2016 CHIEF COMPLAINT: Weakness, appearing pale. HISTORY OF PRESENT ILLNESS: This is an 89-year-old female, who has a history of paroxysmal atrial fibrillation, ischemic cardiomyopathy with an ejection fraction of 35%, chronic left bundle-branch block, chronic systolic and diastolic congestive heart failure, who was recently admitted in the hospital for dysphagia of unclear etiology, discharged back home on 04/24/2016, returns today with the above-mentioned symptoms. History is obtained from the patient and more so from her niece, who is her primary caregiver and reviewing data available on the [employer] system as well. According to the patient's niece, she had done poorly since her return from the hospital. This morning, she was just fine, woke up as usual, had breakfast and did her activities of daily living just fine. The daughter usually leaves to work and leaves her food and medicine separately on the counter, so Mrs. Connell can have. Apparently, when she returned from work around 4 p.m., she found Mrs. Connell very weak, unable to even walk. She was hardly able to speak and said she did not feel good at all. The niece also noticed that she appeared very pale and immediately put her in the car and decided to come to the hospital. Just before they left home, she had an episode of vomiting as well. In the emergency room, initial workup showed that she had a blood pressure of 87 systolic when she arrived. Her heart rate was 37 on an EKG showing symptomatic bradycardia. She was hypotensive, had a white blood cell count of 17,300, lactate of 3.2, BUN and creatinine were 43 and 3.72 today. Hospitalist Service is asked to admit her for further evaluation and treatment. At the time of my evaluation, she denied any chest pain, palpitations, or orthopnea. She had no cough, hemoptysis, night sweats, or weight loss. She denied any falls or loss of consciousness. No history of recent fevers, chills, nausea, vomiting, diarrhea. No history of hematemesis, hematochezia, or hematuria. No other history of recent travel or exposures, other than those mentioned above. PAST MEDICAL HISTORY: Significant for history of chronic kidney disease stage 3, chronic dysphagia of unclear etiology, history of essential hypertension, dementia, paroxysmal atrial fibrillation, ischemic cardiomyopathy with an ejection fraction of 35% followed by Dr. Quarles, history of hyperlipidemia, chronic left bundle-branch block, and chronic systolic and diastolic heart failure. SOCIAL HISTORY: She does not smoke, drink, or use recreational drugs. FAMILY HISTORY: Noncontributory. MEDICATIONS AT HOME: Reviewed by me in the chart today and reordered by me. History And Physical [address] [address] NAME: NAY CONNELL : [birth year] STATUS : REG ER PAT#: [id number] AGE: 89 ADM/REG DATE : 04/29/16 MR#: [id number] REPORT SERV DATE: 04/30/16 DICTATED BY: SHUN GOMEZ DATE: 04/29/16 REPORT STATUS : Draft TRANSCRIBED BY: BILLY DATE: 04/29/16 REVIEW OF SYSTEMS: As in history of present illness. All other systems were reviewed in detail and are quite unremarkable. PHYSICAL EXAMINATION: GENERAL: This is a pleasant 89-year-old, not in any acute distress. HEENT: Her head is atraumatic, normocephalic. She is alert, awake, oriented to time, place, and person. Pupils are equal, reacting to light and accommodating. External ocular muscles are intact. Membranes are moist and pink. Sclerae are nonicteric. NECK: Supple with no jugular venous distention, lymphadenopathy, or thyromegaly. LUNGS: Clear to auscultation with no wheezes, rubs, or crackles. HEART: Sounds were regular with no murmurs, rubs, or gallops. ABDOMEN: Soft, nontender. Bowel sounds are present. There was no organomegaly. EXTREMITIES: Showed no cyanosis or clubbing. She has bilateral pitting lower extremity edema. NEUROLOGIC: Grossly intact with no focal sensory or motor deficits. She was able to move all four extremities. VITAL SIGNS: Today showed a temperature of 97.0, pulse 40, respirations 18 a minute, blood pressure was 83/46 upon arrival, but at the time of my evaluation, it was 103/54, heart rate was 53. Oxygen saturations were 95% on 2 L of oxygen via nasal cannula. LABORATORY DATA: Reviewed on the [employer] system showed sodium of 137, potassium 4.6, chloride 103 and CO2 of 18, BUN was 43 with a creatinine of 3.72, which is up from her baseline of 2.1 to 2.4. Blood glucose was 130. Troponin was 0.02 today. Lactate was 2.2. CBC showed a white blood cell count of 17,300, hemoglobin was 10.4, hematocrit 31.1, platelet count was 308,000. Her prothrombin time was 15 with an INR of 1.2 today. Influenza A and B was not done in the ER. Urinalysis showed large leukocyte esterase, nitrite was negative. There were 24 rbc's and greater than 182 wbc's. Films of the chest x ray were reviewed by me on the PACS today and interpreted by me. There is normal bony architecture with no cardiomegaly. There was no significant change from prior chest x-ray done on 04/20/2016. A 12-lead EKG done in the emergency room was reviewed and interpreted by me. Per my interpretation, there is sinus bradycardia with a rate of 37, left bundle- branch block. IMPRESSION: 1. Symptomatic bradycardia. 2. Weakness. 3. Hypotension. 4. Urinary tract infection. 5. Leukocytosis. 6. Wdicn-kk-waxvdjy kidney disease. 7. Chronic dysphagia of unclear etiology. 8. Essential hypertension. 9. Dementia. 10.Ischemic cardiomyopathy with an ejection fraction of 25%. 11.Chronic left bundle-branch block. 12.Chronic systolic and diastolic heart failure. History And Physical [address] [address] NAME: NAY CONNELL : [birth year] STATUS : REG ER PAT#: [id number] AGE: 89 ADM/REG DATE : 04/29/16 MR#: [id number] REPORT SERV DATE: 04/30/16 DICTATED BY: SHUN GOMEZ DATE: 04/29/16 REPORT STATUS : Draft TRANSCRIBED BY: MODL DATE: 03/22/17 PLAN: We will admit Mrs. Connell to the medical intermediate care unit for close monitoring due to her hypotension and bradycardia. Her bradycardia may be secondary to an inadvertent overdose of both her calcium channel blockers and beta blockers that she is on. I discussed this with the patient and the patient's niece, who is the caregiver. They are really not sure if that could have happened. However, we will hold both these medications and treat her hypertension if it should come to treatable levels on an as-needed basis with hydralazine at that point. Her hypotension has responded to IV fluids here. We will also give her a dose of calcium gluconate as well. We will start her on empiric IV antibiotics for her urinary tract infection after cultures are drawn. Follow Gram stains and adjust accordingly. We will continue fluids as mentioned above. Check her lactate levels in the morning as well. Her left bundle-branch block is chronic on EKG. We will continue monitoring her heart rate. We will go ahead and consult Dr. Quarles, her school program director to see her in the morning. We will follow chemistry, CBC, and other labs in the morning. Also check her TSH and cortisol level as well. She will be on unfractionated heparin for DVT prophylaxis while she is here. I have discussed the above plans with the patient and the family. Questions were answered, and they are agreeable to the above recommendations. Hospitalist Service will be following her during her stay here. /BILLY Shun Gomez M.D. / [id number] CC: Mariel Otto M.D.
--- NOTE | ~2016-04-29 | DS ---
Discharge Summary [facility] [address] [place]. [address] NAME: NAY CONNELL : [birth year] STATUS : ADM IN [facility]#: [id number] AGE: 89 ADM/REG DATE : 04/30/16 MR#: [id number] REPORT SERV DATE: 05/05/16 DICTATED BY: FRANK CARRANZA DATE: 05/04/16 REPORT STATUS : Draft TRANSCRIBED BY: MODKinga DATE: 05/04/16 ADMISSION DATE: 04/30/2016 DISCHARGE DATE: 05/05/2016 PROCEDURES DONE: 04/29/2016, chest x-ray: Mild cardiomegaly, lungs are clear. CONSULT: Dr. Quarles for Cardiology. REASON FOR ADMISSION: Weakness. HISTORY OF HOSPITAL STAY: An 89-year-old white female with past medical history of paroxysmal atrial fibrillation; coronary artery disease with ischemic cardiomyopathy, EF of 35%; CHF with systolic and diastolic failure, EF of 35%; dementia; presenting with weakness, unknown duration. The patient lives at home with a niece who has been taking care of the patient. Apparently, the patient has a very poor and inconsistent p.o. intake. The patient was noted to have a BUN and creatinine of 3.67. Also, the patient has also had an elevated WBC of 14.6. In addition, the patient was also noted to be bradycardic. With the clinical findings and weakness as well as lab findings, question if the patient was having a sick sinus syndrome requiring pacemaker. Cardiology was consulted, and Cardiology upon reviewing the clinical findings, felt the patient could be dehydrated resulting in bradycardia as well as medication effects. Cardiology saw the patient, and once the hydration had started, the patient's kidney function has gradually improved over time. More importantly, the patient has been advised to increase her p.o. intake during the hospital stay. The patient has been very compliant with drops in her creatinine from 3.67 down to 1.94. The patient has been advised to continue her aggressive p.o. intake. Furthermore, the patient did develop a UTI as well because of her decreased p.o. intake. The patient was positive urine culture for E. coli, which was pansensitive. Initially, the patient was started on Rocephin and subsequently has been switched to ampicillin 500 mg p.o. q.6 hours. The patient has been advised to continue the amoxicillin x5 days post discharge with Florastor. DISPOSITION: The patient is feeling fine. No complaints. ACTIVITIES: As tolerated. DIET: Regular. INSTRUCTIONS UPON DISCHARGE: 1. The patient to follow up with Cardiology within two weeks' time. 2. The patient to follow up PMD within two weeks' time. MEDICATION UPON DISCHARGE: 1. Norvasc 5 mg p.o. daily. 2. Aspirin 81 mg daily. 3. Amoxicillin 500 mg p.o. q.8 x5 days. 4. Coreg 6.25 mg p.o. daily. 5. Vitamin D 1000 units p.o. daily. Discharge Summary [place] [id number] [facility] [place]. [address] NAME: NAY CONNELL : [birth year] STATUS : ADM IN [facility]#: [id number] AGE: 89 ADM/REG DATE : 04/30/16 MR#: [id number] REPORT SERV DATE: 05/05/16 DICTATED BY: FRANK CARRANZA DATE: 05/04/16 REPORT STATUS : Draft TRANSCRIBED BY: BILLY DATE: 05/04/16 6. Melatonin 6 mg p.o. at bedtime. 7. Namenda 5 mg p.o. at bedtime. 8. Multivitamin one tab daily. 9. Prilosec 40 mg p.o. daily. 10.Potassium 10 mEq daily. 11.Pravachol 40 mg p.o. daily. 12.Florastor one capsule p.o. b.i.d. 13.Bicarb 1300 mg p.o. at bedtime. 14.Carafate 1 g p.o. before meals and at bedtime. 15. daily. 16.Lawrence 5/325 one tab p.o. b.i.d. p.r.n. 17.Tylenol 1000 mg p.o. daily p.r.n. DIAGNOSES UPON DISCHARGE: 1. Weakness with nausea and vomiting secondary to acute renal failure. 2. Acute renal failure secondary to dehydration. 3. Bradycardia. 4. Paroxysmal atrial fibrillation. 5. Congestive heart failure, systolic/diastolic dysfunction, EF 35%. 6. Ischemic cardiomyopathy, EF 35%. 7. Hypertension. 8. Hyperlipidemia. 9. Dementia. 10.Urinary tract infection secondary to Escherichia coli. JAGDEEP/BILLY Frank Carranza MD / [id number] CC: Frank Carranza MD
--- NOTE | ~2016-04-29 | DS ---
Discharge Summary [facility] [address] [place]. [address] NAME: NAY CONNELL : [birth year] STATUS : DIS IN PAT#: [id number] AGE: 89 ADM/REG DATE : 04/30/16 MR#: [id number] REPORT SERV DATE: 05/06/16 DICTATED BY: DIAMOND MOODY DATE: 05/05/16 REPORT STATUS : Draft TRANSCRIBED BY: MODL DATE: 05/05/16 ADMISSION DATE: 04/30/2016 DISCHARGE DATE: 05/05/2016 PRINICIPAL DIAGNOSES: 1. Bradycardia. 2. Systolic congestive heart failure, ejection fraction of 35%. 3. Atrial fibrillation. 4. Weakness. 5. Dementia. 6. Acute kidney injury. HISTORY OF PRESENT ILLNESS: The patient was admitted with volume depletion. She received IV fluids. Atropine had to be given. Cardizem and carvedilol were discontinued. She had improvement in her heart rate and improvement in her volume status and renal function, and she was able to be optimized at the time of discharge. Back on Coreg for atrial fibrillation, but off the Cardizem. No Norvasc, but she would continue Pravachol, hydralazine 25 t.i.d., vitamin D, Namenda, and multivitamin. Her renal function was too poor for ADY inhibitors and that were changed to beta-blockers. She was initiated on Eliquis 2.5 b.i.d. for atrial fib with a high CHADS2 score. She would follow up with Dr. Mariel Otto following discharge from [facility] [place]. MATT/BILLY Diamond Moody M.D. / [id number] CC: Laurita Hurst M.D. Ondrej J Lisy, M.D.
[2016-04-29 19:34] LABS: BASOPHILS 0.1 %; BASOPHILS ABSOLUTE 0.01 10/3/uL (0.0-0.16); EOSINOPHILS 0.1 %; EOSINOPHILS ABSOLUTE 0.01 10/3/uL (0.0-0.53); HEMOGLOBIN 10.4 g/dL (12.0-16.0); IMMATURE GRANULOCYTES 1.4 %; IMMATURE GRANULOCYTES ABSOLUTE 0.24 10/3/uL (0.0-0.11); LYMPHOCYTES 6.8 %; LYMPHOCYTES ABSOLUTE 1.17 10/3/uL (0.67-4.30); MEAN CORPUS HGB CONC 33.4 g/dL (32.0-36.0); MEAN CORPUSCULAR HEMOGLOB 28.7 pg (26.0-34.0); MEAN CORPUSCULAR VOLUME 85.9 fL (80-100); MEAN PLATELET VOLUME 9.7 fL (9.2-13.0); MONOCYTES 8.1 %; MONOCYTES ABSOLUTE 1.41 10/3/uL (0.21-1.20); NEUTROPHILS 83.5 %; NEUTROPHILS ABSOLUTE 14.48 10/3/uL (2.02-8.40); RBC DISTRIBUTION WIDTH 12.6 % (12.0-16.0); RED CELL COUNT 3.62 10/6/uL (4.0-5.6)
[2016-04-29 19:35] LABS: ER CBC TAT 0 Hrs 05 Mins; HEMATOCRIT 31.1 % (36.0-48.0); MANUAL DIFF NO %; PLATELET COUNT 308 10/3/uL (150-400); WHITE BLOOD CELLS 17.3 10/3/uL (4.5-10.5)
[2016-04-29 19:50] LABS: CALCIUM, SERUM 9.2 MG/DL (8.5-10.4); CHEST PAIN PROFILE TAT 0 Hrs 20 Mins; CHLORIDE, SERUM 103 MMOL/L (96-112); CO2 (CARBON DIOXIDE) 18 MMOL/L (24-34); SODIUM, SERUM 137 MMOL/L (135-148); TROPONIN I <0.02 NG/ML (<0.05)
[2016-04-29 19:51] LABS: BUN (BLOOD UREA NITROGEN) 43 MG/DL (6-23); CREATININE 3.72 MG/DL (0.55-1.02); GFR AFRICAN AMERICAN 12 ML/MIN (>=60); GFR NON AFRICAN AMERICAN 10 ML/MIN (>=60); GLUCOSE, SERUM 130 MG/DL (60-99); POTASSIUM, SERUM 4.6 MMOL/L (3.5-5.3)
[2016-04-29 20:05] LABS: INTERNATIONAL NORMAL RATI 1.2 UNITS (-); PARTIAL THROMBO TIME 36.9 SEC (22.5-37.2)
[2016-04-29 20:10] LABS: LACTATE 2.2 MMOL/L (0.3-2.4)
[2016-04-29 20:51] LABS: ASCORBIC ACID (UR NOT ORDER) NEG (NEG); BILIRUBIN, URINE NEGATIVE (NEG); ER URINALYSIS TAT 0 Hrs 08 Mins; KETONE, URINE NEGATIVE (NEG); LEUKOCYTE ESTERASE(NOT OR LARGE (NEG); NITRITE (URINE) NEG (NEG); WBC (NOT ORDERED) (RFLEX) > 182 (0-5)
[2016-04-29] MEDS ORDERED: ACET500CAP PO (21:37)
[2016-04-29 23:56] LABS: PROCALCITONIN 0.12 ng/mL (<0.5)
[2016-04-30 04:55] LABS: BASOPHILS 0.1 %; BASOPHILS ABSOLUTE 0.02 10/3/uL (0.0-0.16); EOSINOPHILS 0.1 %; EOSINOPHILS ABSOLUTE 0.01 10/3/uL (0.0-0.53); HEMATOCRIT 30.8 % (36.0-48.0); HEMOGLOBIN 10.4 g/dL (12.0-16.0); IMMATURE GRANULOCYTES 1.4 %; IMMATURE GRANULOCYTES ABSOLUTE 0.21 10/3/uL (0.0-0.11); LYMPHOCYTES 7.6 %; LYMPHOCYTES ABSOLUTE 1.11 10/3/uL (0.67-4.30); MEAN CORPUS HGB CONC 33.8 g/dL (32.0-36.0); MEAN CORPUSCULAR HEMOGLOB 28.8 pg (26.0-34.0); MEAN CORPUSCULAR VOLUME 85.3 fL (80-100); MEAN PLATELET VOLUME 10.1 fL (9.2-13.0); MONOCYTES 8.1 %; MONOCYTES ABSOLUTE 1.18 10/3/uL (0.21-1.20); NEUTROPHILS 82.7 %; NEUTROPHILS ABSOLUTE 12.07 10/3/uL (2.02-8.40); PLATELET COUNT 277 10/3/uL (150-400); RBC DISTRIBUTION WIDTH 12.7 % (12.0-16.0); RED CELL COUNT 3.61 10/6/uL (4.0-5.6); WHITE BLOOD CELLS 14.6 10/3/uL (4.5-10.5)
[2016-04-30 04:56] LABS: MANUAL DIFF NO %
[2016-04-30 05:20] LABS: BUN (BLOOD UREA NITROGEN) 45 MG/DL (6-23); CALCIUM, SERUM 9.8 MG/DL (8.5-10.4); CHLORIDE, SERUM 107 MMOL/L (96-112); CO2 (CARBON DIOXIDE) 19 MMOL/L (24-34); CREATININE 3.67 MG/DL (0.55-1.02); GFR AFRICAN AMERICAN 12 ML/MIN (>=60); GFR NON AFRICAN AMERICAN 10 ML/MIN (>=60); GLUCOSE, SERUM 104 MG/DL (60-99); SODIUM, SERUM 139 MMOL/L (135-148)
[2016-04-30 05:21] LABS: PHOSPHORUS, SERUM 2.9 MG/DL (2.5-4.5)
[2016-04-30 05:46] LABS: PROCALCITONIN 0.15 ng/mL (<0.5)
[2016-05-01 05:22] LABS: BASOPHILS 0.2 %; BASOPHILS ABSOLUTE 0.02 10/3/uL (0.0-0.16); EOSINOPHILS 1.5 %; EOSINOPHILS ABSOLUTE 0.16 10/3/uL (0.0-0.53); HEMOGLOBIN 9.1 g/dL (12.0-16.0); IMMATURE GRANULOCYTES 3.1 %; IMMATURE GRANULOCYTES ABSOLUTE 0.34 10/3/uL (0.0-0.11); LYMPHOCYTES 14.1 %; LYMPHOCYTES ABSOLUTE 1.54 10/3/uL (0.67-4.30); MEAN CORPUS HGB CONC 34.1 g/dL (32.0-36.0); MEAN CORPUSCULAR HEMOGLOB 29.3 pg (26.0-34.0); MEAN CORPUSCULAR VOLUME 85.9 fL (80-100); MEAN PLATELET VOLUME 10.3 fL (9.2-13.0); MONOCYTES 10.1 %; NEUTROPHILS ABSOLUTE 7.76 10/3/uL (2.02-8.40); PLATELET COUNT 261 10/3/uL (150-400); RED CELL COUNT 3.11 10/6/uL (4.0-5.6); WHITE BLOOD CELLS 10.9 10/3/uL (4.5-10.5)
[2016-05-01 05:24] LABS: HEMATOCRIT 26.7 % (36.0-48.0); MANUAL DIFF NO %
[2016-05-01 05:49] LABS: CHLORIDE, SERUM 110 MMOL/L (96-112); CO2 (CARBON DIOXIDE) 17 MMOL/L (24-34); GLUCOSE, SERUM 104 MG/DL (60-99); PHOSPHORUS, SERUM 2.3 MG/DL (2.5-4.5); POTASSIUM, SERUM 3.8 MMOL/L (3.5-5.3); SGOT(AST) 8 U/L (5-40); SGPT(ALT) 7 U/L (5-65); SODIUM, SERUM 138 MMOL/L (135-148); TOTAL BILIRUBIN 0.2 MG/DL (0-1.2)
[2016-05-01 05:52] LABS: A/G RATIO 0.8 (0.7-1.9); ALBUMIN 2.4 G/DL (3.5-5.0); ALKALINE PHOSPHATASE 61 U/L (45-117); BUN (BLOOD UREA NITROGEN) 40 MG/DL (6-23); CALCIUM, SERUM 8.3 MG/DL (8.5-10.4); CREATININE 2.98 MG/DL (0.55-1.02); GFR AFRICAN AMERICAN 15 ML/MIN (>=60); GFR NON AFRICAN AMERICAN 13 ML/MIN (>=60); GLOBULIN 3.1 G/DL (2.5-4.1); TOTAL PROTEIN 5.5 G/DL (6.0-8.5)
[2016-05-02 05:47] LABS: BASOPHILS 0.2 %; BASOPHILS ABSOLUTE 0.02 10/3/uL (0.0-0.16); EOSINOPHILS 2.1 %; EOSINOPHILS ABSOLUTE 0.22 10/3/uL (0.0-0.53); HEMATOCRIT 28.5 % (36.0-48.0); HEMOGLOBIN 9.4 g/dL (12.0-16.0); IMMATURE GRANULOCYTES 5.3 %; IMMATURE GRANULOCYTES ABSOLUTE 0.55 10/3/uL (0.0-0.11); LYMPHOCYTES 15.4 %; LYMPHOCYTES ABSOLUTE 1.61 10/3/uL (0.67-4.30); MEAN CORPUSCULAR VOLUME 84.8 fL (80-100); MEAN PLATELET VOLUME 9.8 fL (9.2-13.0); MONOCYTES 8.5 %; MONOCYTES ABSOLUTE 0.89 10/3/uL (0.21-1.20); NEUTROPHILS 68.5 %; NEUTROPHILS ABSOLUTE 7.17 10/3/uL (2.02-8.40); PLATELET COUNT 274 10/3/uL (150-400); RED CELL COUNT 3.36 10/6/uL (4.0-5.6); WHITE BLOOD CELLS 10.5 10/3/uL (4.5-10.5)
[2016-05-02 05:49] LABS: MANUAL DIFF NO %
[2016-05-02 06:08] LABS: A/G RATIO 0.8 (0.7-1.9); ALBUMIN 2.5 G/DL (3.5-5.0); ALKALINE PHOSPHATASE 67 U/L (45-117); BUN (BLOOD UREA NITROGEN) 35 MG/DL (6-23); CALCIUM, SERUM 8.4 MG/DL (8.5-10.4); CHLORIDE, SERUM 110 MMOL/L (96-112); CO2 (CARBON DIOXIDE) 19 MMOL/L (24-34); CREATININE 2.42 MG/DL (0.55-1.02); GFR AFRICAN AMERICAN 20 ML/MIN (>=60); GFR NON AFRICAN AMERICAN 17 ML/MIN (>=60); GLOBULIN 3.2 G/DL (2.5-4.1); GLUCOSE, SERUM 90 MG/DL (60-99); PHOSPHORUS, SERUM 2.1 MG/DL (2.5-4.5); POTASSIUM, SERUM 3.9 MMOL/L (3.5-5.3); SGOT(AST) 10 U/L (5-40); SGPT(ALT) 9 U/L (5-65); SODIUM, SERUM 141 MMOL/L (135-148); TOTAL BILIRUBIN 0.1 MG/DL (0-1.2); TOTAL PROTEIN 5.7 G/DL (6.0-8.5)
[2016-05-03 04:36] LABS: HEMATOCRIT 30.1 % (36.0-48.0); HEMOGLOBIN 10.2 g/dL (12.0-16.0); MEAN CORPUS HGB CONC 33.9 g/dL (32.0-36.0); MEAN CORPUSCULAR HEMOGLOB 28.7 pg (26.0-34.0); MEAN CORPUSCULAR VOLUME 84.6 fL (80-100); MEAN PLATELET VOLUME 8.9 fL (9.2-13.0); PLATELET COUNT 316 10/3/uL (150-400); RBC DISTRIBUTION WIDTH 12.8 % (12.0-16.0); RED CELL COUNT 3.56 10/6/uL (4.0-5.6)
[2016-05-03 04:38] LABS: MANUAL DIFF YES %
[2016-05-03 04:53] LABS: CALCIUM, SERUM 8.7 MG/DL (8.5-10.4); CHLORIDE, SERUM 109 MMOL/L (96-112); CO2 (CARBON DIOXIDE) 20 MMOL/L (24-34); CREATININE 1.96 MG/DL (0.55-1.02); GFR AFRICAN AMERICAN 26 ML/MIN (>=60); GFR NON AFRICAN AMERICAN 22 ML/MIN (>=60); GLUCOSE, SERUM 94 MG/DL (60-99); PHOSPHORUS, SERUM 2.3 MG/DL (2.5-4.5); POTASSIUM, SERUM 3.6 MMOL/L (3.5-5.3); SODIUM, SERUM 140 MMOL/L (135-148)
[2016-05-03 04:54] LABS: BUN (BLOOD UREA NITROGEN) 25 MG/DL (6-23)
[2016-05-03 05:23] LABS: BAND NEUTROPHILS 3 %; EOSINOPHILS 3 %; EOSINOPHILS ABSOLUTE (CALC) 0.36 10/3/uL (0.0-0.53); IMMATURE GRANS ABSOLUTE (CALC) 0.12 10/3/uL (0.0-0.11); LYMPHOCYTES 15 %; METAMYELOCYTES 1 %; MONOCYTES 4 %; MONOCYTES ABSOLUTE (CALC) 0.48 10/3/uL (0.21-1.20); NEUTROPHILS ABSOLUTE (CALC) 9.24 10/3/uL (2.02-8.40); SEGMENTED NEUTROPHIL (0) 74 %; TOTAL NUCLEATED CELLS 100
[2016-05-03 05:24] LABS: ACANTHOCYTES OCC (0-2/OIF); PLATELET ESTIMATE ADQ (ADEQUATE)
[2016-05-04 09:51] LABS: ALBUMIN 2.8 G/DL (3.5-5.0); BUN (BLOOD UREA NITROGEN) 21 MG/DL (6-23); CALCIUM, SERUM 8.9 MG/DL (8.5-10.4); CHLORIDE, SERUM 106 MMOL/L (96-112); CO2 (CARBON DIOXIDE) 18 MMOL/L (24-34); CREATININE 1.94 MG/DL (0.55-1.02); GFR AFRICAN AMERICAN 26 ML/MIN (>=60); GFR NON AFRICAN AMERICAN 22 ML/MIN (>=60); GLUCOSE, SERUM 157 MG/DL (60-99); PHOSPHORUS, SERUM 2.5 MG/DL (2.5-4.5); POTASSIUM, SERUM 3.6 MMOL/L (3.5-5.3); SODIUM, SERUM 138 MMOL/L (135-148)
== END 2016-05-05 16:48 | DRG 683 ==
LOC: ER 18:22 → IMCU 04-30 00:31 → 7NO 05-01 14:14
PROVIDERS: Emergency Medicine; Hospitalist; Internal Medicine; Internal Medicine Cardiovascular Disease
DX: N17.9 Acute kidney failure, unspecified (principal); I42.0 Dilated cardiomyopathy; I48.0 Paroxysmal atrial fibrillation; E11.22 Type 2 diabetes mellitus with diabetic chronic kidney disease; E86.0 Dehydration; R00.1 Bradycardia, unspecified; I50.42 Chronic combined systolic (congestive) and diastolic (congestive) heart failure; I13.0 Hypertensive heart and chronic kidney disease with heart failure and stage 1 through stage 4 chronic kidney disease, or unspecified chronic kidney disease; R13.10 Dysphagia, unspecified; F03.90 Unspecified dementia, unspecified severity, without behavioral disturbance, psychotic disturbance, mood disturbance, and anxiety; I45.2 Bifascicular block; N39.0 Urinary tract infection, site not specified; B96.20 Unspecified Escherichia coli [E. coli] as the cause of diseases classified elsewhere; I45.10 Unspecified right bundle-branch block; N18.3 Chronic kidney disease, stage 3 (moderate); I25.5 Ischemic cardiomyopathy; Z79.82 Long term (current) use of aspirin
CPT/HCPCS: 36600; 71010; 80048; 80053; 80069; 81001; 82533; 83605; 83735; 84100; 84145; 84443; 84484; 85025; 85610; 85730; 87040; 87077; 87086; 87186; 87641; 93005; 96374; 96375; 97110-GP; 97116-GP; 97161-GP; 99285; A9270-GY; G8978-CK-GP; G8979-CH-GP; J0610; J2405

== ENCOUNTER 2016-07-02 09:30 | Emergency (ER) | payer MEDICARE, BC | END 2016-07-02 10:15 | disposition home or self-care (01) | LOC: ER 09:30 | PROC: 0HCNXZZ Extirpation of Matter from Left Foot Skin, External Approach (ICD-10-PCS; principal; 2016-07-02) | DX: S90.852A Superficial foreign body, left foot, initial encounter (principal); I50.9 Heart failure, unspecified; N18.9 Chronic kidney disease, unspecified; I48.91 Unspecified atrial fibrillation; Z88.5 Allergy status to narcotic agent; Z79.82 Long term (current) use of aspirin; Z79.899 Other long term (current) drug therapy; W22.8XXA Striking against or struck by other objects, initial encounter | CPT/HCPCS: 73630-LT; 90471; 90714; 99283 ==